=== PATIENT | female | born 1995 | race Caucasian/White ===

== ENCOUNTER 2016-08-11 13:47 | Emergency (ER) | payer MEDICAID, OTHER ==
[~2016-08-11] VITALS: Wt 60.0 kg
[2016-08-11 14:48] LABS: ADD UMIC YES; URINE BILIRUBIN (Dip) NEGATIVE (NEGATIVE); URINE BLOOD (Dip) NEGATIVE (NEGATIVE); URINE GLUCOSE (Dip) NEGATIVE (NEGATIVE); URINE KETONES (Dip) NEGATIVE (NEGATIVE); URINE LEUKOCYTE ESTERASE (Dip) TRACE (NEGATIVE); URINE NITRITE (Dip) NEGATIVE (NEGATIVE); URINE TOTAL PROTEIN (Dip) NEGATIVE (NEGATIVE); URINE UROBILINOGEN (Dip) 1.0 E.U./dL (0.1-1.0)
[2016-08-11 15:07] LABS: URINE COLOR YELLOW (YELLOW)
[2016-08-11 15:10] LABS: BACTERIA,URINE FEW; SQUAMOUS EPITHELIAL CELL,UR MODERATE; URINE RBCS 0-2 /HPF (0)
[2016-08-11 15:21] LABS: BASOPHILS % 0.2 % (0.0-2.0); EOSINOPHILS % 0.4 % (0.0-7.0); HEMATOCRIT 37.4 % (37.0-47.0); HEMOGLOBIN 12.8 g/dl (12.0-16.0); LYMPHOCYTES # 1.5 10^3/ul (0.8-2.9); LYMPHOCYTES % 11.5 % (15.0-51.0); MEAN CORPUSCULAR HEMOGLOBIN 31.5 pg (29.0-33.0); MEAN CORPUSCULAR HGB CONC 34.2 g/dl (32.0-37.0); MEAN PLATELET VOLUME 8.9 fl (7.4-10.4); MONOCYTE # 0.2 10^3/ul (0.3-0.9); MONOCYTES % 1.3 % (0.0-11.0); NEUTROPHIL # 10.9 10^3/ul (1.6-7.5); NEUTROPHILS % 86.6 % (39.0-77.0); PLATELET COUNT 232 10^3/UL (140-440); RED BLOOD COUNT 4.06 10^6/ul (4.20-5.40); UNCORRECTED WBC 12.6 10^3/ul (4.8-10.8); WHITE BLOOD COUNT 12.6 10^3/ul (4.8-10.8)
--- NOTE | 2016-08-11 15:40 | RADRPT ---
PROCEDURE: US OB. CLINICAL INDICATION: Pain and vaginal bleeding TECHNIQUE: Multiple sonographic images of the pelvis and gravid uterus were obtained. The images were reviewed on a PACS workstation. COMPARISON: No prior studies are available for comparison. FINDINGS: There is a single viable intrauterine gestation. Cardiac activity is present with 129 beats per min [place]. There is a vertex presentation. The placenta is anterior. There is no evidence for an abruption or placenta previa. There is a normal amount of amniotic fluid with a MVP = 6.2 cm. Measurements were made in order to determine age. The results are as follows: BPD =4.8 cm HC =17.3 cm AC =14.8 cm FL =3.1 cm Estimated gestational age of approximately 20 weeks and 0 days based on ultrasound measurements. Clinical age: 19 weeks and 5 days. The estimated date of delivery is 12/29/16, based on ultrasound measurements. The EFW = 314 g, 51.2%, based on LMP age. RPTAT: AA IMPRESSION: Single viable intrauterine gestation of approximately 20 weeks and 0 days based on ultrasound measu rements. .Demar Ybarra MD, Date Time Electronically viewed and signed by .eDmar Ybarra MD, on 08/11/2016 15:40 .S/
[2016-08-11 15:43] LABS: CONDITION 1
[2016-08-11] MEDS ORDERED: NITR-58 PO (17:48)
--- NOTE | 2016-08-11 18:19 | ERD ---
ER Documentation Chief Complaint Date/Time DATE: 08/11/16 TIME: 18:14 Chief Complaint lower abd pain and mild vag bleeding since today. HPI 21-year-old female with no significant past medical history is a presents the ED complaining of hematuria and streaks of blood on her underwear that is bright red in color. States that she has lower pelvic pain. 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 States that her last menses was on March 27, 2016. Denies any fever, chills, nausea, vomiting, shortness of breath, chest pain, dysuria, urgency, frequency. ROS All systems reviewed and are negative except as per history of present illness. Medications Home Meds Active Scripts Nitrofurantoin Monohyd Macrocr* (Macrobid*) 100 Mg Capsr, 100 MG PO BID for 7 Days, CAP Prov:YAQUELIN TURNER PA-C 08/11/16 Allergies Allergies: Coded Allergies: No Known Allergy (Verified , 11/24/11) PMhx/Soc History of Surgery: Yes (1 X C SECTION) Anesthesia Reaction: No Hx Neurological Disorder: No Hx Respiratory Disorders: Yes (ASTHMA) Hx Cardiac Disorders: No Hx Psychiatric Problems: No Hx Miscellaneous Medical Probl: Yes () Hx Alcohol Use: No Hx Substance Use: No Hx Tobacco Use: No Smoking Status: Never smoker Physical Exam Vitals Vital Signs Date Time Temp Pulse Resp B/P Pulse Ox O2 Delivery O2 Flow Rate FiO2 08/11/16 13:50 97.8 100 20 134/71 100 Physical Exam Const: Pmy-sxf-[id number], well-nourished. In no acute distress. Head: Atraumatic, normocephalic Eyes: Normal Conjunctiva without injection. No purulent discharge. ENT: Normal external ear, nose. Moist oropharynx without tonsillar exudates. Non -erythematous pharynx. Uvula midline. No drooling. No trismus. Neck: No cervical midline tenderness. Full range of motion. No meningismus. No cervical lymphadenopathy. No JVD. Resp: Clear to auscultation bilaterally. No wheezing, rhonchi, rales, or crackles. No accessory muscle use. No retractions. Cardio: Regular rate and rhythm. No murmurs, rubs or gallops. Abd: Soft, nontender to palpation, non distended. Normal bowel sounds. No palpable masses. No rebound tenderness. No guarding. Negative McBurney's point. Negative psoas sign. Negative obturator sign. Skin: No petechiae or rashes Back: No midline tenderness. No CVA tenderness. Ext: No cyanosis, or edema. Neur: Awake and alert. Normal gait. Normal coordination. Psych: Normal Mood and Affect Result Diagram: 08/11/16 1505 Results 24 hrs Laboratory Tests Test 08/11/16 14:30 08/11/16 15:05 Urine Amorphous Urates MANY Urine Bacteria FEW Urine Bilirubin NEGATIVE Urine Clarity CLOUDY Urine Color YELLOW Urine Glucose NEGATIVE% Urine Hemoglobin NEGATIVE Urine Ketones NEGATIVE Urine Leukocyte Esterase TRACE Urine Microscopic RBC 0-2/HPF Urine Microscopic WBC 5-10/HPF Urine Nitrite NEGATIVE Urine Specific Anchor 1.020 Urine Squamous Epithelial Cells MODERATE Urine Total Protein NEGATIVE Urine Urobilinogen 1.0 E.U./dL Urine pH 7.0 Basophils # 0.010^3/ul Basophils % 0.2% Beta HCG, Quantitative 75422.0mIU/ml Eosinophils # 0.010^3/ul Eosinophils % 0.4% Hematocrit 37.4% Hemoglobin 12.8g/dl Lymphocytes # 1.510^3/ul Lymphocytes % 11.5% Mean Corpuscular Hemoglobin 31.5pg Mean Corpuscular Hemoglobin Concent 34.2g/dl Mean Corpuscular Volume 92.0fl Mean Platelet Volume 8.9fl Monocytes # 0.210^3/ul Monocytes % 1.3% Neutrophils # 10.910^3/ul Neutrophils % 86.6% Nucleated Red Blood Cells # 0.010^3/ul Nucleated Red Blood Cells % 0.0/100WBC Platelet Count 04731^3/UL Red Blood Count 4.0610^6/ul Red Cell Distribution Width 13.0% White Blood Count 12.610^3/ul Procedures/MDM This is a 21-year-old female who is a presents the ED complaining of hematuria and slight streaks of vaginal bleeding noted on her underwear. Patient is afebrile nontoxic appearing. Patient has normal vital signs. An ultrasound, beta-hCG, CBC, type and RH, UA was ordered to evaluate patient. CBC: No evidence of severe infection or anemia Urine: No elevation in nitrites, trace leukocyte esterase with 5-10 WBC, hematuria. No evidence of UTI Rh: A positive. No indication for Rhogam at this time. beta Hc PROCEDURE: US OB. CLINICAL INDICATION: Pain and vaginal bleeding TECHNIQUE: Multiple sonographic images of the pelvis and gravid uterus were obtained. The images were reviewed on a PACS workstation. COMPARISON: No prior studies are available for comparison. FINDINGS: There is a single viable intrauterine gestation. Cardiac activity is present with 129 beats per minute. There is a vertex presentation. The placenta is anterior. There is no evidence for an abruption or placenta previa. There is a normal amount of amniotic fluid with a MVP = 6.2 cm. Measurements were made in order to determine age. The results are as follows: BPD = 4.8 cm HC = 17.3 cm AC = 14.8 cm FL = 3.1 cm Estimated gestational age of approximately 20 weeks and 0 days based on ultrasound measurements. Clinical age: 19 weeks and 5 days. The estimated date of delivery is 12/29/16, based on ultrasound measurements. The EFW = 314 g, 51.2%, based on LMP age. RPTAT: AA IMPRESSION: Single viable intrauterine gestation of approximately 20 weeks and 0 days based on ultrasound measurements. Patient's bleeding symptoms have stabilized while in the department. Low suspicion for symptomatic anemia, ectopic , sepsis, PID, appendicitis, ovarian torsion, tubo-ovarian abscess, surgical abdomen, or other emergent conditions. Patient was educated that there is a risk for threatened . Discharge medications: Macrobid Patient to follow up with [employer]OR in 2 days for further evaluation and treatment. Patient is to return sooner to the ED for any worsening symptoms. Patient's questions were answered. Patient understood and agreed with discharge plan. Departure Diagnosis: Primary Impression: Vaginal bleeding in Trimester: second trimester Qualified Code: O46.92 - Vaginal bleeding in , second trimester Additional Impression: Urinary tract infection Urinary tract infection type: site unspecified Hematuria presence: without hematuria Qualified Code: N39.0 - Urinary tract infection without hematuria, site unspecified Condition: Stable Patient Instructions: Understanding Urinary Tract Infections (UTIs), Vaginal Bleed in Referrals: COMMUNITY CLINICS YOU HAVE RECEIVED A MEDICAL SCREENING EXAM AND THE RESULTS INDICATE THAT YOU DO NOT HAVE A CONDITION THAT REQUIRES URGENT TREATMENT IN THE EMERGENCY DEPARTMENT. FURTHER EVALUATION AND TREATMENT OF YOUR CONDITION CAN WAIT UNTIL YOU ARE SEEN IN YOUR DOCTORS OFFICE WITHIN THE NEXT 1-2 DAYS. IT IS YOUR RESPONSIBILITY TO MAKE AN APPOINTMENT FOR FOLOW-UP CARE. IF YOU HAVE A PRIMARY DOCTOR --you should call your primary doctor and schedule an appointment IF YOU DO NOT HAVE A PRIMARY DOCTOR YOU CAN CALL OUR PHYSICIAN REFERRAL HOTLINE AT IF YOU CAN NOT AFFORD TO SEE A PHYSICIAN YOU CAN CHOSE FROM THE FOLLOWING [facility] [address] [facility]. [facility] [address] [facility] [facility] [address] [facility] [address] [facility]. [facility] [address] [facility]. [facility] [address] [facility]. [facility] YOU HAVE RECEIVED A MEDICAL SCREENING EXAM AND THE RESULTS INDICATE THAT YOU DO NOT HAVE A CONDITION THAT REQUIRES URGENT TREATMENT IN THE EMERGENCY DEPARTMENT. FURTHER EVALUATION AND TREATMENT OF YOUR CONDITION CAN WAIT UNTIL YOU ARE SEEN IN YOUR DOCTORS OFFICE WITHIN THE NEXT 1-2 DAYS. IT IS YOUR RESPONSIBILITY TO MAKE AN APPOINTMENT FOR FOLOW-UP CARE. IF YOU HAVE A PRIMARY DOCTOR --you should call your primary doctor and schedule and appointment IF YOU DO NOT HAVE A PRIMARY DOCTOR YOU CAN CALL OUR PHYSICIAN REFERRAL HOTLINE AT . IF YOU CAN NOT AFFORD TO SEE A PHYSICIAN YOU CAN CHOSE FROM THE FOLLOWING [facility] INSTITUTIONS: [facility] [address] [place] [address] [facility] [address] [place] [address] [facility] [address] [place] [address] [employer] [address] [facility] [address] [place] [address] OFFICE FAX YONAS PEREZA [address] [place] [address] [address] ESCOBARFORMERLY [facility] [address] [place] [address] [address] [facility], [facility] [address] [facility] [address] [facility] [address] [facility], [place] [address] [facility] [address] [place] [address] [address] [facility], [facility] [address] - AIDA BATRESA [address], [facility] [phone] GARCIA, [place] [address] [facility]. [address], [facility] [address] [address] [facility] [address] [place], [place] [id number] [facility] Hours: 8:00 am - 5:00 pm Additional Instructions: FOLLOW UP WITH YOUR [employer] SUPER[employer]OR TOMORROW. Return to this facility if you are not improving as expected. YAQUELIN TURNER PA-C Aug 11, 2016 18:18
== END 2016-08-11 17:55 | disposition home or self-care (01) ==
LOC: FTE 13:47
DX: O46.92 Antepartum hemorrhage, unspecified, second trimester (principal); O23.42 Unspecified infection of urinary tract in pregnancy, second trimester; R10.2 Pelvic and perineal pain; O26.892 Other specified pregnancy related conditions, second trimester; J45.909 Unspecified asthma, uncomplicated; O99.512 Diseases of the respiratory system complicating pregnancy, second trimester; Z3A.20 20 weeks gestation of pregnancy
CPT/HCPCS: 36415; 76805; 81001; 81003; 84702; 85025; 86900; 86901; Z7502

== ENCOUNTER 2016-11-04 23:18 | Emergency (ER) | payer MEDICAID, OTHER ==
[~2016-11-04] VITALS: Ht 152.4 cm; Wt 65.5 kg
[~2016-11-04 23:18] MED LIST: NITR-58 PO
[2016-11-04 23:37] VITALS: Ht 152.4 cm; Wt 65.5 kg
--- NOTE | 2016-11-04 23:55 | ERD ---
ER Documentation Chief Complaint Date/Time DATE: 11/04/16 TIME: 23:53 Chief Complaint L ear pain and sinus pressure last night 31 weeks HPI This 21-year-old female presents to the emergency room for evaluation of left- sided ear pain and sinus pressure for the past 2 days. This patient is 31 weeks , has had no vaginal bleeding or vaginal discharge. She states that her left ear is popping and hurts and she has had some green discharge from her nose. She describes her pain as an achy pain which is localized to the left portion of her face with no radiation. The patient denies any blurred vision, or swelling in her extremities ROS All systems reviewed and are negative except as per history of present illness. Medications Home Meds Active Scripts Nitrofurantoin Monohyd Macrocr* (Macrobid*) 100 Mg Capsr, 100 MG PO BID for 7 Days, CAP Prov:YAQUELIN TURNER PA-C 08/11/16 Allergies Allergies: Coded Allergies: No Known Allergy (Verified , 11/24/11) PMhx/Soc Medical and Surgical Hx: pt denies Medical Hx, pt denies Surgical Hx History of Surgery: Yes (1 X C SECTION) Anesthesia Reaction: No Hx Neurological Disorder: No Hx Respiratory Disorders: Yes (ASTHMA) Hx Cardiac Disorders: No Hx Psychiatric Problems: No Hx Alcohol Use: No Hx Substance Use: No Hx Tobacco Use: No Smoking Status: Never smoker Physical Exam Vitals Vital Signs Date Time Temp Pulse Resp B/P Pulse Ox O2 Delivery O2 Flow Rate FiO2 11/04/16 23:37 98.1 104 20 117/71 98 Physical Exam Const: No acute distress Head: Atraumatic Eyes: Bilateral conjunctival injection ENT: Left tympanic membrane erythematous and bulging, tenderness to palpation over the left maxillary sinus. Normal External Ears, Nose and Mouth. Neck: Full range of motion..~ No meningismus. Resp: Clear to auscultation bilaterally Cardio: Regular rate and rhythm, no murmurs Abd: Gravid abdomen, soft, non tender, non distended. Normal bowel sounds Skin: No petechiae or rashes Back: No midline or flank tenderness Ext: No cyanosis, or edema Neur: Awake and alert Psych: Normal Mood and Affect Procedures/MDM This 21-year-old female presents to the emergency room for evaluation of left ear pain and sinus pain. I evaluated this patient and she did have an erythematous and bulging left eardrum and tenderness to palpation over left maxillary sinus. I do feel this patient is suffering from acute sinusitis. The patient has had a green discharge from her nose. This patient will be discharged home with a prescription for amoxicillin at this time instructions to follow-up with her primary care physician. Patient was also asking for an albuterol inhaler. She has no wheezing at this time but does that she has asthma and has run out of her inhaler. She will be given an inhaler as well Departure Diagnosis: Primary Impression: Acute sinusitis Additional Impression: Acute maxillary sinusitis Condition: Stable FRANCIE SLATER DO Nov 04, 2016 23:55
[2016-11-04] MEDS ORDERED: AMO500 PO (23:57)
[2016-11-04] MEDS ORDERED: ALBU8.5H3 INH (23:57)
== END 2016-11-05 00:03 | disposition home or self-care (01) ==
LOC: E/R 23:18
DX: O99.513 Diseases of the respiratory system complicating pregnancy, third trimester (principal); J01.00 Acute maxillary sinusitis, unspecified; J45.909 Unspecified asthma, uncomplicated; Z3A.31 31 weeks gestation of pregnancy
CPT/HCPCS: 99284

== ENCOUNTER 2016-12-12 09:39 | Inpatient (IN) | payer OTHER ==
[~2016-12-12] VITALS: Ht 152.4 cm; Wt 67.0 kg
[~2016-12-12 09:39] MED LIST changes: +ALBU8.5H3 INH; +AMO500 PO
[2016-12-12 09:49] VITALS: BP 122/76; Ht 152.4 cm; Wt 67.0 kg
[2016-12-12] MEDS ORDERED: PREN1TAB17 PO (09:53)
[2016-12-12] MEDS ORDERED: CITRACAL PO (09:54)
--- NOTE | 2016-12-12 10:16 | TRIAGE ---
OB Triage Datetime Report Generated by CPN: 12/12/2016 10:16 Datetime: 12/12/2016 10:03 Stage of : OB Triage Assessment Type: Triage Maternal Assessment Level of Consciousness: Fully Conscious DTR's/Clonus: DTRs 2+; No Clonus Headache: Denies Blurred Vision: No Respiratory Effort: Unlabored; Regular Rhythm; Equal Expansion Breath Sounds, Left: Clear and Equal Breath Sounds, Right: Clear and Equal Nausea/Vomiting: Denies RUQ Epigastric Pain: Denies Lower Extremities Edema: None Degree: None Upper Extremities Edema: None Degree: None Facial Edema: None Temperature Route: Oral Fall Risk Assessment History of Falling: (0) No Secondary Diagnosis: (0) No Ambulatory Aid: (0) Bedrest/Nurse Assist IV Therapy: (0) No Gait: (0) Normal/Bedrest/Immobile Mental Status: (0) Oriented to Own Ability Fall Score: 0 Fall Risk Score Definition: No Risk: No action required Labor Evaluation Monitor Mode: External Heart Rate FHR Baseline Rate: 135 Monitor Mode: External US Variability: Moderate 6-25 bpm Accelerations: 15X15 Decelerations: None Category: Category I Pain Assessment Pain Scale: 3 Pain Presence: Intermittent Pain Type: Cramping Pain Location: Abdomen Datetime: 12/12/2016 09:59 Time of Arrival: 12/12/2016 09:31 Arrived By: Ambulatory Arrived From: Home Chief Complaint: UC'S SINCE 6 AM Movement: Present Contractions: Regular Time Contractions Began: 12/12/2016 06:00 Contractions: Q 5 TO 10 MINUTES Rupture of Membranes: Denies Vaginal Discharge: Denies Recent Sexual Intercouse: Denies Abdominal Trauma: Not Applicable Patient Complaints: Contractions Additional Patient Complaints: EFMX2, CALL MD Provider Notified: 05.06
[2016-12-12] MEDS ORDERED: MISOPROSTOL 200 MCG TAB PR PRN ×2 (10:30→21:30)
[2016-12-12] MEDS ORDERED: METHYLERGONOVINE 0.2 MG INJ IM PRN ×2 (10:30→21:30)
[2016-12-12] MEDS ORDERED: CEFAZOLIN 2 GM/50 ML (PMX) 50 ML IV SCH (10:30)
[2016-12-12] MEDS ORDERED: CARBOPROST 250 MCG INJ IM PRN ×2 (10:30→21:30)
[2016-12-12] MEDS ORDERED: OXYTOCIN 30 UNITS/LR 500 ML IV PRN ×2 (10:30→21:30)
[2016-12-12] MEDS ORDERED: OXYTOCIN 30 UNITS/LR 500 ML IV SCH ×2 (10:30→21:07)
[2016-12-12] MEDS: LACTATED RINGER'S 1,000 ML IV SCH ×2 (10:57→11:49)
[2016-12-12 10:59] LABS: ADD SCAN DIFF NO
[2016-12-12 11:05] LABS: BASOPHILS % 0.1 % (0.0-2.0); EOSINOPHILS # 0.1 10^3/ul (0.0-0.5); EOSINOPHILS % 0.5 % (0.0-7.0); HEMATOCRIT 35.8 % (37.0-47.0); HEMOGLOBIN 12.8 g/dl (12.0-16.0); LYMPHOCYTES # 1.4 10^3/ul (0.8-2.9); LYMPHOCYTES % 15.2 % (15.0-51.0); MEAN CORPUSCULAR HGB CONC 35.8 g/dl (32.0-37.0); MEAN CORPUSCULAR VOLUME 92.3 fl (82.0-101.0); MEAN PLATELET VOLUME 10.7 fl (7.4-10.4); MONOCYTE # 0.5 10^3/ul (0.3-0.9); MONOCYTES % 5.9 % (0.0-11.0); NEUTROPHIL # 7.1 10^3/ul (1.6-7.5); NEUTROPHILS % 77.9 % (39.0-77.0); PLATELET COUNT 169 10^3/UL (140-415); RED BLOOD COUNT 3.88 10^6/ul (4.20-5.40); RED CELL DISTRIBUTION WIDTH 12.2 % (11.5-14.5); WHITE BLOOD COUNT 9.2 10^3/ul (4.8-10.8)
[2016-12-12 11:58] LABS: INR 0.99; PROTIME 13.1 Sec (12.2-14.2)
[2016-12-12 11:59] LABS: PARTIAL THROMBOPLASTIN TIME 26.3 Sec (25.0-35.0)
[2016-12-12] MEDS ORDERED: morphine SULFATE/PF (10 MG/10 ML) INJ ONE (15:23)
[2016-12-12] MEDS ORDERED: FENTAnyl 50 MCG/ML VIAL ONE (15:23)
[2016-12-12] MEDS ORDERED: PHENYLephrine (100 MCG/ML) 5ML SYG ONE ×2 (15:34→16:16)
[2016-12-12] MEDS ORDERED: ONDANSETRON 4 MG INJ ONE (15:38)
[2016-12-12] MEDS ORDERED: DEXAMETHASONE 4 MG/ML 1 ML INJ ONE (15:38)
--- NOTE | 2016-12-12 15:51 | HP ---
Date/Time of Note Date/Time of Note DATE: 12/12/16 TIME: 15:35 OB - History Hx of Present Free Text/Dictation 21 years old female 2 para 1 EDC December 31, 2016, 37 weeks and 2 days with history of previous , admitted to [facility] in active labor with contractions every 3-5 minute she is being prepared for repeat . This patient has been under the care of the [facility] and her course was not complicated with gestational diabetes -induced hypertension Past history menarche at age 10 history of 1 previous which was complicated with hypertension and asthma during the last week of With primary , she reports no other surgeries or hospitalization for any other serious medical or surgical condition Estimated Due Date: Dec 31, 2016 : 2 Para: 1 Care: Good Care Ultrasounds: Normal mid trimester US Obstetrical Complications: Gestational Diabetes Medical Complications: None Past Family/Social History * Past Medical, Surgical, Family and Obstetric Histories reviewed from chart. Rubella: immune RPR/VDRL: Negative GBS Status: Unknown HBsAG: Negative OB Admission Exam Vital Signs Vital Signs Vital Signs Date Time Temp Pulse Resp B/P Pulse Ox O2 Delivery O2 Flow Rate FiO2 12/12/16 09:49 98.3 122/76 Room Air Physical Exam HEENT: WNL Heart: Rhythm Normal Lungs: Clear, Equal Abdomen: WNL Extremities: Normal Reflexes: Normal Cervical Dilatation: 1cm Effacement: 50% Station: -1 Membranes: Intact Heart Rate: 130's Accelerations: Accelerations Present Decelerations: No Decelerations Varibility: Moderate Contractions on Admission: < 5 Minutes Apart Intensity: Moderate Last 72 hours Lab Results CBC & BMP 12/12/16 10:25 OB Assessment/Plan Reason for admission: other (37 weeks 2 days previous in active labor ) Plan: Other (Repeat at 37 weeks and 2 days active labor) BRITNEY BRANTLEY MD December 12, 2016 15:46
[2016-12-12] MEDS ORDERED: HYDROmorphONE 1 MG/ML SYG IV PRN ×2 (16:30)
[2016-12-12] MEDS ORDERED: PROCHLORPERAZINE 10 MG INJ IV PRN (16:30)
[2016-12-12] MEDS ORDERED: ZOLPIDEM 5 MG TAB PO PRN (16:30)
[2016-12-12] MEDS ORDERED: NALOXONE (0.4 MG/ML) INJ IV PRN (16:30)
[2016-12-12] MEDS ORDERED: ONDANSETRON 4 MG INJ IV PRN (16:30)
[2016-12-12] MEDS ORDERED: DIPHENHYDRAMINE 50 MG INJ IV PRN (16:30)
--- NOTE | 2016-12-12 19:01 | OPR ---
DATE OF OPERATION: 12/12/2016 PREOPERATIVE DIAGNOSES: 1. Intrauterine at 37 weeks and 2 days. 2. History of previous section. 3. In active labor. POSTOPERATIVE DIAGNOSES: 1. Intrauterine at 37 weeks and 2 days. 2. History of previous section. 3. In active labor. PROCEDURE PERFORMED: Repeat transverse low cervical section. SURGEON: Britney Adams MD FORM SETTER HELPER: Tai Kelley MD ANESTHESIA: Spinal. ANESTHESIOLOGIST: German Marx DO FINDINGS: Live baby boy, 9 and 9, baby weighed 3225 grams, 7 pounds 2 ounces. DETAILS OF THE PROCEDURE: Under satisfactory spinal anesthesia, the patient was prepped and draped and placed in supine position, tilted to the left. Pfannenstiel incision was made. Old scar was re moved. Incision carried through the subcutaneous tissue. Bleeders brought under control with elect rocautery. Fascia incised to the length of the incision. Rectus muscles divided in midline. Perit oneum exposed, entered through a transverse incision. Exploration of abdomen: Gravid uterus at ter m, normal appearing tubes and ovaries, and extremely thinned out lower segment of the uterus to the thickness of 1 to 2 mm. Bladder flap was developed. Transverse incision was made in the lower segm ent of the uterus. Amniotic sac ruptured. Clear amniotic fluid noted. Live baby boy was delivered from unengaged vertex with a nuchal cord around the baby's neck x1, rather tight. Nasal oropharyn geal suction was performed. Baby handed to the team for immediate attention. The patient received 20 units of Pitocin. Placenta delivered manually intact. Uterine cavity cleaned with wet sponge and drainage established. Uterus closed in 2 layers using Monocryl #1 in continuous fashion. Peritoneal cavity irrigated with warm saline. Sponge, needle and instrument reported to be correct. Abdominal peritoneum closed with 2-0 chromic catgut continuously. Rectus muscle approximated with a few interrupted 2-0 chromic catgut. Fascia closed with #1 PDS in a continuous fashion. Subcutan eous tissue approximated with interrupted 2-0 chromic catgut. Skin closed with 3-0 Monocryl subcuti cular. Estimated blood loss 600 mL. Urine bag contained 200 mL of clear urine. The patient tolera miya the procedure well, transferred to recovery room in a good condition. Dictated By: BRITNEY LOCKE/RYAN Conf#: [id number] DID#: [id number]
[2016-12-12] MEDS: KETOROLAC 30 MG INJ IV PRN (19:28)
[2016-12-12 20:40] VITALS: BP 107/66; RESP 18
[2016-12-12 20:55] VITALS: BP 108/54; RESP 18
[2016-12-12] MEDS ORDERED: CEFAZOLIN 1 GM/50 ML (PMX) 50 ML IVPB SCH (21:30)
[2016-12-12] MEDS ORDERED: LANOLIN 7 GM TUBE TOP PRN (21:30)
[2016-12-12] MEDS ORDERED: OXYCODONE/ACETAMINOPHEN (5/325) TAB PO PRN (21:30)
[2016-12-12] MEDS ORDERED: ACETAMINOPHEN/CODEINE #3 TAB PO PRN ×2 (21:30)
[2016-12-13] VITALS: BP 91/52; RESP 18
[2016-12-13 04:00] VITALS: BP 89/58; RESP 18
[2016-12-13] MEDS: KETOROLAC 30 MG INJ IV PRN ×2 (06:42→12:42)
[2016-12-13 08:00] VITALS: BP 94/53; RESP 18
[2016-12-13 09:01] LABS: ADD SCAN DIFF NO
[2016-12-13 09:07] LABS: BASOPHILS % 0.2 % (0.0-2.0); EOSINOPHILS % 0.1 % (0.0-7.0); HEMATOCRIT 28.4 % (37.0-47.0); LYMPHOCYTES # 2.2 10^3/ul (0.8-2.9); LYMPHOCYTES % 17.2 % (15.0-51.0); MEAN CORPUSCULAR HEMOGLOBIN 32.8 pg (29.0-33.0); MEAN CORPUSCULAR HGB CONC 35.2 g/dl (32.0-37.0); MEAN CORPUSCULAR VOLUME 93.1 fl (82.0-101.0); MEAN PLATELET VOLUME 10.7 fl (7.4-10.4); MONOCYTE # 0.9 10^3/ul (0.3-0.9); MONOCYTES % 7.2 % (0.0-11.0); NEUTROPHIL # 9.7 10^3/ul (1.6-7.5); NEUTROPHILS % 74.8 % (39.0-77.0); PLATELET COUNT 170 10^3/UL (140-415); RED BLOOD COUNT 3.05 10^6/ul (4.20-5.40); RED CELL DISTRIBUTION WIDTH 12.3 % (11.5-14.5)
[2016-12-13] MEDS: MULTIVIT/MIN/FOLATE/IRON/PREN TAB PO SCH (09:30)
--- NOTE | 2016-12-13 09:53 | PN ---
Date/Time of Note Date/Time of Note DATE: 12/13/16 TIME: 09:51 OB Subjective Subjective Subjective Post day 1 Afebrile vital signs stable abdomen mild distention ,soft ,bowel sounds present incision dry lochia moderate extremity normal ambulation encouraged Laboratory Tests Test 12/12/16 10:25 12/13/16 08:34 White Blood Count 9.210^3/ul 13.010^3/ul Red Blood Count 3.8810^6/ul 3.0510^6/ul Hemoglobin 12.8g/dl 10.0g/dl Hematocrit 35.8% 28.4% Mean Corpuscular Volume 92.3fl 93.1fl Mean Corpuscular Hemoglobin 33.0pg 32.8pg Mean Corpuscular Hemoglobin Concent 35.8g/dl 35.2g/dl Red Cell Distribution Width 12.2% 12.3% Platelet Count 35457^3/UL 48314^3/UL Mean Platelet Volume 10.7fl 10.7fl Neutrophils % 77.9% 74.8% Lymphocytes % 15.2% 17.2% Monocytes % 5.9% 7.2% Eosinophils % 0.5% 0.1% Basophils % 0.1% 0.2% Nucleated Red Blood Cells % 0.0/100WBC 0.0/100WBC Neutrophils # 7.110^3/ul 9.710^3/ul Lymphocytes # 1.410^3/ul 2.210^3/ul Monocytes # 0.510^3/ul 0.910^3/ul Eosinophils # 0.110^3/ul 0.010^3/ul Basophils # 0.010^3/ul 0.010^3/ul Nucleated Red Blood Cells # 0.010^3/ul 0.010^3/ul Prothrombin Time 13.1Sec Prothrombin Time Ratio 1.0 INR International Normalized Ratio 0.99 Activated Partial Thromboplast Time 26.3Sec Rapid Plasma Reagin NONREACTIVE Hepatitis B Surface Antigen NEGATIVE Current Medications Medications (Trade) Dose Ordered Sig/Flor Route PRN Reason Start Time Stop Time Status Last Admin Dose Admin Lactated Ringer's 1,000 ml @ 125 mls/hr Q8H IV 12/12/16 10:28 12/12/16 21:14 DC 12/12/16 11:49 Cefazolin Sodium/ Dextrose 50 ml @ 100 mls/hr ONCE IV 12/12/16 10:30 12/12/16 21:14 DC Oxytocin/Lactated Ringer's 500 ml @ 125 mls/hr ONCE IV 12/12/16 10:30 12/12/16 21:14 DC 12/12/16 18:17 Oxytocin/Lactated Ringer's 500 ml @ 0 mls/hr ONCE PRN IV For Hemorrhage Management 12/12/16 10:30 12/12/16 21:14 DC Methylergonovine Maleate (Methergine) 0.2 mg ONCE PRN IM VAGINAL BLEEDING 12/12/16 10:30 12/12/16 21:14 DC Carboprost Tromethamine (Hemabate) 250 mcg ONCE PRN IM VAGINAL BLEEDING 12/12/16 10:30 12/12/16 21:14 DC Misoprostol (Cytotec) 1,000 mcg ONCE PRN AR VAGINAL BLEEDING 12/12/16 10:30 12/12/16 21:14 DC Morphine Sulfate (Duramorph) 10 mg STK-MED ONCE .ROUTE 12/12/16 15:23 12/12/16 15:24 DC Fentanyl (Sublimaze) 100 mcg STK-MED ONCE .ROUTE 12/12/16 15:23 12/12/16 15:24 DC Phenylephrine HCl (Charles-Synephrine Inj Syg) 500 mcg STK-MED ONCE .ROUTE 12/12/16 15:34 12/12/16 15:35 DC Ondansetron HCl (Zofran Inj) 4 mg STK-MED ONCE .ROUTE 12/12/16 15:38 12/12/16 15:39 DC Dexamethasone (Decadron) 4 mg STK-MED ONCE .ROUTE 12/12/16 15:38 12/12/16 15:39 DC Naloxone HCl (Narcan) 0.1 mg Q2M PRN IV FOR RESP RATE 8 OR LESS 12/12/16 16:30 12/13/16 16:29 Ketorolac Tromethamine (Toradol) 30 mg Q6H PRN IV PAIN 12/12/16 16:30 12/13/16 16:29 12/13/16 06:42 Hydromorphone HCl (Dilaudid) 0.2 mg Q3H PRN IV PAIN LEVEL 1-5 12/12/16 16:30 12/13/16 16:29 Hydromorphone HCl (Dilaudid) 0.4 mg Q3H PRN IV PAIN LEVEL 6-10 12/12/16 16:30 12/13/16 16:29 Diphenhydramine HCl (Benadryl) 25 mg Q6H PRN IV ITCHING 12/12/16 16:30 12/13/16 16:29 Ondansetron HCl (Zofran Inj) 4 mg Q6H PRN IV NAUSEA AND/OR VOMITING 12/12/16 16:30 12/13/16 16:29 Prochlorperazine (Compazine Inj) 10 mg ONCE PRN IV NAUSEA AND/OR VOMITING 12/12/16 16:30 12/13/16 16:29 Zolpidem Tartrate (Ambien) 5 mg HS MAY REPEAT X 1 PRN PO INSOMNIA 12/12/16 16:30 12/13/16 16:29 Phenylephrine HCl (Charles-Synephrine Inj Syg) 500 mcg STK-MED ONCE .ROUTE 12/12/16 16:16 12/12/16 16:17 DC Acetaminophen/ Codeine Phosphate (Tylenol No.3) 1 tab Q4H PRN PO PAIN LEVEL 4-6 12/12/16 21:30 Acetaminophen/ Codeine Phosphate (Tylenol No.3) 2 tab Q4H PRN PO PAIN LEVEL 7-10 12/12/16 21:30 Oxycodone/ Acetaminophen (Percocet (5/ 325)) 1 tab Q4H PRN PO PAIN LEVEL 4-6 12/12/16 21:30 Oxycodone/ Acetaminophen (Percocet (5/ 325)) 2 tab Q4H PRN PO PAIN LEVEL 7-10 12/12/16 21:30 Ibuprofen (Motrin) 600 mg Q6 PO 12/13/16 18:00 Simethicone (Mylicon) 160 mg Q8H PRN PO DISTENSION/GAS/BLOATING 12/12/16 21:30 12/13/16 09:30 Senna/Docusate Sodium (Senokot-S) 1 tab BID PO 12/13/16 21:00 Lanolin ([id number]) 1 applic BEDSIDE MEDICATION PRN TOP BEDSIDE FOR KATYA TO NIPPLES 12/12/16 21:30 Diphtheria/ Tetanus/Acell Pertussis 0.5 ml 0.5 ml ONCE ONCE IM* 12/15/16 09:00 12/15/16 09:01 Oxytocin/Lactated Ringer's 500 ml @ 0 mls/hr ONCE PRN IV For Hemorrhage Management 12/12/16 21:30 Methylergonovine Maleate (Methergine) 0.2 mg ONCE PRN IM VAGINAL BLEEDING 12/12/16 21:30 Carboprost Tromethamine (Hemabate) 250 mcg ONCE PRN IM VAGINAL BLEEDING 12/12/16 21:30 Misoprostol 1000 mcg 1,000 mcg ONCE PRN AR VAGINAL BLEEDING 12/12/16 21:30 Cefazolin Sodium 50 ml @ 100 mls/hr ONCE IVPB 12/12/16 21:30 12/12/16 21:59 DC 12/12/16 22:26 Oxytocin/Lactated Ringer's 500 ml @ 125 mls/hr Q4H IV 12/12/16 21:07 12/12/16 22:26 Prenat Multivit/ [place]/Iron/Folic Ac ( S) 1 tab DAILY PO 12/13/16 09:00 12/13/16 09:30 BRITNEY BRANTLEY MD December 13, 2016 09:53
[2016-12-13 16:20] VITALS: BP 98/64; RESP 18
[2016-12-13] MEDS: IBUPROFEN 600 MG TAB PO SCH (18:05)
[2016-12-13 20:00] VITALS: BP 117/71; RESP 18
[2016-12-13] MEDS: OXYCODONE/ACETAMINOPHEN (5/325) TAB PO PRN (21:07)
[2016-12-13] MEDS: SENNA/DOCUSATE NA (8.6MG/50MG) TAB PO SCH (21:07)
[2016-12-14] MEDS: IBUPROFEN 600 MG TAB PO SCH ×4 (00:48→17:54)
[2016-12-14 04:00] VITALS: BP 111/55; RESP 18
[2016-12-14] MEDS: OXYCODONE/ACETAMINOPHEN (5/325) TAB PO PRN (04:58)
[2016-12-14 08:00] VITALS: BP 99/58; PULSE 83; RESP 18
[2016-12-14] MEDS: SENNA/DOCUSATE NA (8.6MG/50MG) TAB PO SCH ×2 (09:57→21:08)
[2016-12-14] MEDS: MULTIVIT/MIN/FOLATE/IRON/PREN TAB PO SCH (09:57)
--- NOTE | 2016-12-14 12:20 | PN ---
Date/Time of Note Date/Time of Note DATE: 12/14/16 TIME: 12:18 OB Subjective Subjective Subjective Post day 2 Afebrile vital signs stable abdomen soft incision dry bowel sounds present no bowel movement extremities normal, stool softener, enema recommended BRITNEY BRANTLEY MD December 14, 2016 12:20
[2016-12-14] MEDS ORDERED: NA PHOSPHATE/BIPHOS 133 ML ENEMA PR ONE (12:30)
[2016-12-14 16:00] VITALS: BP 111/65; PULSE 82; RESP 18
[2016-12-14 19:50] VITALS: BP 101/63; PULSE 88; RESP 19
[2016-12-15] MEDS: IBUPROFEN 600 MG TAB PO SCH ×5 (00:05→23:58)
[2016-12-15 03:40] VITALS: BP 116/69; PULSE 83; RESP 19
[2016-12-15 08:00] VITALS: BP 102/61; PULSE 83; RESP 18
[2016-12-15] MEDS: MULTIVIT/MIN/FOLATE/IRON/PREN TAB PO SCH (08:52)
[2016-12-15] MEDS: SENNA/DOCUSATE NA (8.6MG/50MG) TAB PO SCH ×2 (08:52→21:55)
[2016-12-15] MEDS ORDERED: DIPHTH/TET/ACEL PERTUSS (ADULT) 0.5 ML VIAL IM* ONE (09:00)
[2016-12-15] MEDS: OXYCODONE/ACETAMINOPHEN (5/325) TAB PO PRN (10:56)
[2016-12-15 16:00] VITALS: BP 100/59; PULSE 88; RESP 18
--- NOTE | 2016-12-15 17:38 | PN ---
Date/Time of Note Date/Time of Note DATE: 12/15/16 TIME: 17:36 OB Subjective Subjective Subjective Post date 3 Afebrile vital signs stable abdomen soft bowel sounds present slight abdominal distention lochia moderate extremity normal no bowel movement enema recommended BRITNEY BRANTLEY MD December 15, 2016 17:38
[2016-12-15 20:00] VITALS: BP 97/54; PULSE 80; RESP 18
[2016-12-16] MEDS: IBUPROFEN 600 MG TAB PO SCH ×2 (05:51→12:50)
[2016-12-16 08:30] VITALS: BP 119/80; PULSE 74; RESP 18
[2016-12-16] MEDS: SENNA/DOCUSATE NA (8.6MG/50MG) TAB PO SCH (10:20)
[2016-12-16] MEDS: MULTIVIT/MIN/FOLATE/IRON/PREN TAB PO SCH (10:20)
--- NOTE | 2016-12-16 15:39 | PD.PPDC ---
[employer] Discharge Instruction Condition Patient Condition: Good Diet Diet: Resume Regular Diet Activity/Restrictions Activity: Normal Activity May Shower Restrictions: No Exercising No Lifting No Driving No Sexual Activity Nothing in the Vagina No [place] No Tampons, douche Wound/Drain Care Instructions Wound/Drain Care Instructions: Remove Steri Strips in 1 week Follow-up Follow-up with Physician: 4, Day/Days Provider Information: Appointment clinic in 4 days to discontinue poncho instructions given prescription for postop pain advised patient moderate ambulation regular diet Return to clinic for [employer] Instructions: Fever greater than 101 Chills Worsening abdominal pain Excessive Vaginal Bleeding More than 2 pads per hour Unable to tolerate diet OB Instructions: Breast Tenderness Depression Blurried Vision Headache Surgical Instructions: Incisional Drainage Incisional Redness BRITNEY BRANTLEY MD December 16, 2016 15:39
--- NOTE | 2016-12-16 15:47 | DS ---
Date/Time of Note Date/Time of Note DATE: 12/16/16 TIME: 15:45 Discharge Summary Admission/Discharge Info Admit Date/Time December 12, 2016 at 10:19 Discharge Date/Time December 16, 2016 at 1545 Final Diagnosis Post #3 Patient Condition: Good Procedures Repeat Hx of Present Illness 37 weeks 2 days history of previous admitted in labor underwent repeat for the third time Hospital Course Satisfactory uneventful Home Meds Active Scripts Amoxicillin* (Amoxicillin*) 500 Mg Cap, 500 MG PO TID for 10 Days, CAP Prov:FRANCIE SLATER DO 11/04/16 Albuterol Sulfate* (Proair HFA*) 8.5 Gm Hfa.aer.ad, 2 PUFF INH Q4H Y for WHEEZING AND SOB, #1 INHALER Prov:FRANCIE SLATER DO 11/04/16 Nitrofurantoin Monohyd Macrocr* (Macrobid*) 100 Mg Capsr, 100 MG PO BID for 7 Days, CAP Prov:YAQUELIN TURNER PA-C 08/11/16 Reported Medications Calcium Citrate* (Citracal*) 950 Mg Tab, 950 MG PO BID, TAB 12/12/16 Vit-Iron Fumarate-FA ( Tablet) 1 Each Tablet, 1 TAB PO DAILY, TAB 12/12/16 Follow-up Plan Appointment clinic in 4 days to discontinue poncho Primary Care Provider [facility] Time spent on discharge: < 30 minutes BRITNEY BRANTLEY MD December 16, 2016 15:47
== END 2016-12-16 17:00 | disposition home or self-care (01) | DRG 766 ==
LOC: OBT 09:39 → L-D 09:39 → OBT 10:17 → L-D 10:19 → PP1 20:42
PROVIDERS: ADMIT Obstetrics & Gynecology; ATTEND Obstetrics & Gynecology
PROC: 10D00Z1 Extraction of Products of Conception, Low, Open Approach (ICD-10-PCS; principal; 2016-12-12 15:15)
DX: O34.211 Maternal care for low transverse scar from previous cesarean delivery (principal); Z37.0 Single live birth; Z3A.37 37 weeks gestation of pregnancy
CPT/HCPCS: 85025; 85610; 85730; 86592; 86850; 86900; 86901; 87340; 90715; 94760; 99464; G0463; J0690; J1100; J1885; J2274; J2370; J2405; J2590; J3010; J7120